=== PATIENT | male | born 1935 | race Native Hawaiian/Other Pacific Islander ===

== ENCOUNTER 2016-05-04 07:30 | Outpatient (CLI) | payer OTHER ==
[2016-05-04 07:56] LABS: PLATELET COUNT 154 K/uL (142-355)
[2016-05-04 08:41] LABS: POTASSIUM 4.3 mmol/L (3.6-5.2); SODIUM 136 mmol/L (136-145)
== END 2016-05-04 19:05 | disposition home or self-care (01) ==
LOC: LABW 07:30
PROVIDERS: Nurse Practitioner
DX: D64.89 Other specified anemias (principal); K21.9 Gastro-esophageal reflux disease without esophagitis; R53.83 Other fatigue; I10 Essential (primary) hypertension; D50.8 Other iron deficiency anemias; Z79.899 Other long term (current) drug therapy; E56.8 Deficiency of other vitamins; Z51.81 Encounter for therapeutic drug level monitoring
CPT/HCPCS: 36415; 80053; 80061; 82728; 83540; 83550; 84443; 85027

== ENCOUNTER 2016-09-29 09:04 | Outpatient (CLI) | payer OTHER ==
[2016-09-29 09:42] LABS: PLATELET COUNT 173 K/uL (142-355)
== END 2016-09-29 10:05 | disposition home or self-care (01) ==
LOC: LABW 09:04
PROVIDERS: Nurse Practitioner
DX: R53.83 Other fatigue (principal); R79.89 Other specified abnormal findings of blood chemistry
CPT/HCPCS: 36415; 82728; 83540; 83550; 85027

== ENCOUNTER 2017-11-22 15:56 | Outpatient (CLI) | payer OTHER ==
[2017-11-22 16:27] LABS: PLATELET COUNT 185 K/uL (142-355)
[2017-11-22 17:21] LABS: POTASSIUM 4.4 mmol/L (3.6-5.2)
== END 2017-11-22 21:26 | disposition home or self-care (01) ==
LOC: LABW 15:56
PROVIDERS: Nurse Practitioner
DX: D64.9 Anemia, unspecified (principal); E53.8 Deficiency of other specified B group vitamins
CPT/HCPCS: 36415; 80053; 82607; 82728; 83540; 83550; 85027

== ENCOUNTER 2017-11-23 09:18 | Outpatient (CLI) | payer OTHER | END 2017-11-24 17:30 | disposition home or self-care (01) | LOC: INF 09:18 | PROC: 30233N1 Transfusion of Nonautologous Red Blood Cells into Peripheral Vein, Percutaneous Approach (ICD-10-PCS; principal; 2017-11-23) | DX: D64.89 Other specified anemias (principal) | CPT/HCPCS: 36430; 86850; 86900; 86901; 86922; 96374; 96376; J1940; P9016 ==

== ENCOUNTER 2017-11-26 09:19 | Outpatient (CLI) | payer OTHER | END 2017-11-26 19:13 | disposition home or self-care (01) | LOC: LABW 09:19 | PROC: 30233N1 Transfusion of Nonautologous Red Blood Cells into Peripheral Vein, Percutaneous Approach (ICD-10-PCS; principal; 2017-11-26) | DX: D64.89 Other specified anemias (principal) | CPT/HCPCS: 36415; 85014; 85018 ==

== ENCOUNTER 2018-06-27 09:55 | Outpatient (CLI) | payer OTHER ==
[2018-06-27 10:24] LABS: PLATELET COUNT 155 K/uL (142-355)
[2018-06-27 10:57] LABS: POTASSIUM 4.3 mmol/L (3.6-5.2)
== END 2018-06-27 19:11 | disposition home or self-care (01) ==
LOC: LABW 09:55
PROVIDERS: Nurse Practitioner
DX: D50.0 Iron deficiency anemia secondary to blood loss (chronic) (principal); R53.83 Other fatigue; I10 Essential (primary) hypertension; E78.00 Pure hypercholesterolemia, unspecified; E55.9 Vitamin D deficiency, unspecified
CPT/HCPCS: 36415; 80053; 80061; 82652; 82728; 83540; 83550; 84443; 85027

== ENCOUNTER 2018-11-08 08:22 | Outpatient (CLI) | payer OTHER | END 2018-11-08 21:38 | disposition home or self-care (01) | LOC: RAD 08:22 | DX: J18.1 Lobar pneumonia, unspecified organism (principal) ==

== ENCOUNTER 2019-08-12 07:33 | Outpatient (CLI) | payer OTHER ==
[2019-08-12 08:19] LABS: PLATELET COUNT 137 K/uL (142-355)
[2019-08-12 08:42] LABS: POTASSIUM 4.3 mmol/L (3.6-5.2)
== END 2019-08-12 19:03 | disposition home or self-care (01) ==
LOC: LABW 07:33
PROVIDERS: Internal Medicine Cardiovascular Disease
DX: Z79.899 Other long term (current) drug therapy (principal)
CPT/HCPCS: 36415; 80053; 80061; 85027

== ENCOUNTER 2020-08-02 09:18 | Emergency (ER) | payer OTHER ==
[~2020-08-02] VITALS: Ht 167.6 cm; Wt 72.6 kg
[2020-08-02 09:18] VITALS: TEMP 98.3
[2020-08-02 10:07] LABS: PLATELET COUNT 152 K/uL (142-355)
[2020-08-02 10:22] LABS: POTASSIUM 3.9 mmol/L (3.6-5.2); SODIUM 138 mmol/L (136-145)
[2020-08-02 10:27] LABS: PARTIAL THROMBOPLASTIN TIME 25.5 SECONDS (24.5-33.6)
[2020-08-02 12:00] VITALS: BP 118/68
== END 2020-08-02 13:10 | disposition short-term general hospital (02) ==
LOC: ED 09:24
PROVIDERS: Emergency Medicine Emergency Medical Services
DX: R07.89 Other chest pain (principal); R94.31 Abnormal electrocardiogram [ECG] [EKG]; R06.02 Shortness of breath; Z20.822 Contact with and (suspected) exposure to COVID-19
CPT/HCPCS: 36415; 80053; 82550; 83735; 83880; 84484; 85027; 85379; 85610; 85730; 87635; 93005; 96360; 96361; 96365; 96375; 99284; J1644; U0003

== ENCOUNTER 2021-03-31 08:39 | Emergency (ER) | payer OTHER ==
[~2021-03-31] VITALS: Ht 167.6 cm; Wt 86.2 kg
[2021-03-31 08:39] VITALS: TEMP 98.4
[2021-03-31 10:55] VITALS: BP 143/82
== END 2021-03-31 11:15 | disposition short-term general hospital (02) ==
LOC: ED 08:39
DX: S32.512A Fracture of superior rim of left pubis, initial encounter for closed fracture (principal); S32.591A Other specified fracture of right pubis, initial encounter for closed fracture; S00.01XA Abrasion of scalp, initial encounter; S50.312A Abrasion of left elbow, initial encounter; I67.82 Cerebral ischemia; W01.198A Fall on same level from slipping, tripping and stumbling with subsequent striking against other object, initial encounter; Y92.511 Restaurant or cafe as the place of occurrence of the external cause
CPT/HCPCS: 96360; 96375; 99285; J2270

== ENCOUNTER 2021-04-07 13:44 | Inpatient (IN) | payer OTHER ==
[~2021-04-07] VITALS: Ht 167.6 cm; Wt 72.6 kg
[2021-04-08 00:27] VITALS: BP 162/98; TEMP 98.3; Ht 167.6 cm; Wt 72.6 kg
[2021-04-08 08:00] VITALS: BP 140/78; TEMP 99.6
[2021-04-08 20:00] VITALS: BP 130/82; TEMP 99.3
[2021-04-09 08:00] VITALS: BP 161/85; TEMP 98.9
[2021-04-09] MEDS ORDERED: CEFEPIME1 GM/50 ML IV (09:29)
[2021-04-09] MEDS ORDERED: NEURONTIN 100M100 MG PO (09:30)
[2021-04-09] MEDS ORDERED: LANSOPRAZOLE30 M2 PO (09:30)
[2021-04-09] MEDS ORDERED: MIRALAX17 GM PO (09:31)
[2021-04-09] MEDS ORDERED: TRAMADOL HYDROC50 MG PO (09:32)
[2021-04-09] MEDS ORDERED: QUETIAPINE25 MG PO (09:32)
[2021-04-09] MEDS ORDERED: ASPIR-8181 MG PO (09:33)
[2021-04-09] MEDS ORDERED: CLOPIDOGREL75 MG PO (09:34)
[2021-04-09] MEDS ORDERED: HYDROCHLOROT12.5 M1 PO (09:35)
[2021-04-09] MEDS ORDERED: LUPRON DEPOT IM (09:36)
[2021-04-09] MEDS ORDERED: CLARITIN10 M1 PO (09:37)
[2021-04-09] MEDS ORDERED: COZAAR25 MG PO (09:38)
[2021-04-09] MEDS ORDERED: METO-837 PO ×2 (09:39→09:40)
[2021-04-09] MEDS ORDERED: ROPINIROLE3 MG PO (09:39)
[2021-04-09 20:00] VITALS: BP 142/60; TEMP 99.3
[2021-04-10 08:00] VITALS: BP 167/82; TEMP 100.2
[2021-04-10 12:42] LABS: PLATELET COUNT 143 K/uL (142-355)
[2021-04-10 12:49] LABS: POTASSIUM 4.2 mmol/L (3.6-5.2)
[2021-04-10 19:52] VITALS: BP 108/69; TEMP 99.1
[2021-04-11 08:00] VITALS: BP 129/77; TEMP 98.7
[2021-04-11 20:00] VITALS: BP 116/78; TEMP 98.5
[2021-04-12 08:00] VITALS: BP 139/78; TEMP 99
[2021-04-12 20:00] VITALS: BP 136/70; TEMP 99.2
[2021-04-13 08:00] VITALS: BP 167/74; TEMP 96.6
[2021-04-13 20:00] VITALS: BP 130/70; TEMP 98.4
[2021-04-14 08:00] VITALS: BP 127/66; TEMP 97.7
[2021-04-14 20:00] VITALS: BP 127/72; TEMP 98.3
[2021-04-15 08:00] VITALS: BP 93/54; TEMP 98.7
[2021-04-15 20:00] VITALS: BP 111/63; TEMP 98.6
[2021-04-16 07:59] VITALS: BP 121/67; TEMP 98.7
[2021-04-16 20:00] VITALS: BP 109/62; TEMP 98.6
[2021-04-17 08:00] VITALS: BP 118/65; TEMP 100
[2021-04-17 20:00] VITALS: BP 120/68; BP 139/68; TEMP 100.7; TEMP 98.6
[2021-04-18 08:00] VITALS: BP 118/61; TEMP 98.5
[2021-04-18 19:48] VITALS: BP 103/62; TEMP 98.9
[2021-04-19 08:00] VITALS: BP 142/79; TEMP 98
[2021-04-19 20:03] VITALS: BP 114/65; TEMP 97.9
[2021-04-20 08:00] VITALS: BP 75/49; TEMP 98.4
[2021-04-20 20:00] VITALS: BP 94/53; TEMP 98.6
[2021-04-21 08:00] VITALS: BP 103/55; TEMP 98.6
[2021-04-21 13:50] VITALS: BP 127/65; TEMP 98.9
[2021-04-21 20:00] VITALS: BP 117/65; TEMP 97.5
[2021-04-22 08:00] VITALS: BP 122/65; TEMP 98.4
[2021-04-22 20:00] VITALS: BP 85/60; TEMP 98.3
[2021-04-23 08:11] VITALS: BP 116/66; TEMP 98.3
[2021-04-23 20:29] VITALS: BP 147/72; TEMP 98.7
[2021-04-24 08:00] VITALS: BP 125/76; TEMP 98.1
[2021-04-24 20:00] VITALS: BP 121/69; TEMP 99.3
[2021-04-25 08:00] VITALS: BP 106/53; TEMP 99.4
[2021-04-25 20:00] VITALS: BP 124/61; TEMP 99.3
[2021-04-26 08:00] VITALS: BP 110/62; TEMP 98.4
== END 2021-04-26 14:00 | disposition home or self-care (01) | DRG 559 ==
LOC: MED/SURG 13:44
PROVIDERS: ADMIT Internal Medicine Endocrinology, Diabetes & Metabolism; ATTEND Internal Medicine Endocrinology, Diabetes & Metabolism
DX: S22.069D Unspecified fracture of T7-T8 vertebra, subsequent encounter for fracture with routine healing (principal); S32.019D Unspecified fracture of first lumbar vertebra, subsequent encounter for fracture with routine healing; S22.41XD Multiple fractures of ribs, right side, subsequent encounter for fracture with routine healing; J69.0 Pneumonitis due to inhalation of food and vomit; R13.12 Dysphagia, oropharyngeal phase; Z91.81 History of falling; M62.81 Muscle weakness (generalized); R26.2 Difficulty in walking, not elsewhere classified; Z74.1 Need for assistance with personal care; R27.8 Other lack of coordination; S22.42XD Multiple fractures of ribs, left side, subsequent encounter for fracture with routine healing; I25.10 Atherosclerotic heart disease of native coronary artery without angina pectoris; Z95.5 Presence of coronary angioplasty implant and graft; Z79.01 Long term (current) use of anticoagulants; C61 Malignant neoplasm of prostate; I21.4 Non-ST elevation (NSTEMI) myocardial infarction; I10 Essential (primary) hypertension; E87.1 Hypo-osmolality and hyponatremia; K21.9 Gastro-esophageal reflux disease without esophagitis; G25.81 Restless legs syndrome
CPT/HCPCS: 80048; 81000; 84132; 85027; 87081; 87635; 94760; J0692; J2270; U0003

== ENCOUNTER 2022-12-09 08:17 | Outpatient (CLI) | payer OTHER ==
[~2022-12-09 08:17] MED LIST: ASPIR-8181 MG PO; CEFEPIME1 GM/50 ML IV; CLARITIN10 M1 PO; CLOPIDOGREL75 MG PO; COZAAR25 MG PO; HYDROCHLOROT12.5 M1 PO; LANSOPRAZOLE30 M2 PO; LUPRON DEPOT IM; METO-837 PO; MIRALAX17 GM PO; NEURONTIN 100M100 MG PO; QUETIAPINE25 MG PO; ROPINIROLE3 MG PO; TRAMADOL HYDROC50 MG PO
[2022-12-09 09:19] LABS: PLATELET COUNT 118 K/uL (142-355)
[2022-12-09 09:50] LABS: POTASSIUM 4.1 mmol/L (3.6-5.2)
== END 2022-12-09 18:39 | disposition home or self-care (01) ==
LOC: LABW 08:17
PROVIDERS: ATTEND Internal Medicine Gastroenterology
DX: K74.69 Other cirrhosis of liver (principal); Z79.899 Other long term (current) drug therapy
CPT/HCPCS: 36415; 80053; 80074; 82103; 82172; 82247; 82390; 82465; 82525; 82728; 82947; 82977; 83010; 83516; 83540; 83550; 83883; 84450; 84460; 84478; 85027; 85610; 86038

== ENCOUNTER 2022-12-13 12:22 | Outpatient (CLI) | payer OTHER | END 2022-12-13 19:06 | disposition home or self-care (01) | LOC: LABW 12:22 | PROVIDERS: ATTEND Internal Medicine Cardiovascular Disease | DX: I50.9 Heart failure, unspecified (principal) | CPT/HCPCS: 36415; 83880 ==